=== PATIENT | female | born 1975 | race Caucasian/White ===

== ENCOUNTER 2020-09-15 22:16 | Emergency (ER) | payer OTHER, SELFPAY ==
[2020-09-15 22:17] VITALS: BP 126/73; PULSE 96; RESP 18; TEMP 36.3; O2SAT 100; BMI 23.8
--- NOTE | 2020-09-15 22:28 | ED.RN ---
[facility] CALLED FOR DRUG SCREEN
--- NOTE | 2020-09-15 22:41 | EX.ED.GENINJ ---
HPI History of Present Illness Chief Complaint: Laceration Informant: patient Onset/Context/Timing Onset: Today Mechanism/Context: Work Related Narrative Narrative: Patient is a 45-year-old female denies any significant past medical history presented with laceration to her left forearm. She is right-hand dominant. She was using a cook box filler to cut something when she accidentally cut her forearm. She saw white and knew that the laceration was deep so she came to the emergency room to be evaluated. Laceration occurred approximately 2 hours prior to my evaluation. Patient states she has a little bit of numbness in her hand but thinks it is because the bandage on her arm is very tight. She is not sure when her last tetanus was. She denies any significant pain. She has been a bit nauseous since the incident. No other complaints at this time. Tetanus Immunization: Unknown [facility] Home Medications NK 09/15/20 [History Last Taken Unknown] Allergy/AdvReac Type Severity Reaction Status Date / Time meperidine [From Demerol] Allergy Unknown Verified 09/15/20 22:18 Social History Smoking Status: Current every day smoker tobacco type: cigarettes ROS ROS ED Constitutional Constitutional ED: Denies chills, fever(s) or malaise Eyes Eyes: Denies blurry vision or loss of vision ENT ENT ED: Denies rhinorrhea or sore throat Cardiovascular Cardiovascular: Denies chest pain or dizziness Respiratory/Chest Respiratory/Chest: Denies cough or dyspnea Gastrointestinal Gastrointestinal: Reports nausea; Denies vomiting Genitourinary Genitourinary ED: Denies dysuria or hematuria Musculoskeletal Musculoskeletal: Denies arthralgias or myalgias Integumentary Reports other Details: Laceration to left forearm ; Denies rash Neurologic Neurologic: Denies focal weakness or headache(s) Psychiatric Psychiatric: Denies anxiety or behavioral changes EXAM Physical Exam Const Vital Signs: 09/15/20 22:17 Temperature 97.3 F L Temperature Source Temporal Pulse Rate 96 Respiratory Rate 18 Blood Pressure 126/73 H Blood Pressure Mean 90 Pulse Ox 100 Oxygen Delivery Method Room Air Positive well nourished and well developed General Appearance ED: well developed HEENT atraumatic Eyes PERRL and EOMs intact bilaterally Neck full ROM Chest Wall inspection of chest normal Resp normal respiratory effort Cardio regular rhythm Jugular Venous Distention: other Other Details: Brisk capillary refill Rate: regular rate Extremity full ROM General Extremety ED: Negative for deformity, edema or tenderness General Extremity: Negative for deformity or edema Neuro oriented x3, no focal motor deficits and no sensory deficits noted Sensorium / Orientation: alert Psych mental status grossly normal Skin Skin Narrative: 3 cm linear full-thickness laceration of the left forearm, proximal/medial and ventral aspect. PROC Procedures Lacerations Left arm: Length: 1.18 in Depth: Sub Q Shape: Linear Prep: Sterile Conditions and Chlorhexadine Laceration repair: Irrigated, Lidocaine with epi, Local and Skin sutures (4 simple interrupted ) Irrigated (ml): 500 Suture Information: Ethilon, Simple and 4-0 MDM MDM MDM Narrative Medical decision making narrative: Patient evaluated for laceration to her left forearm. Tetanus is updated. See procedure note. She is given Zofran for nausea. She is neurovascularly intact. Patient declines any analgesia in the ER. Workmen's Compensation paperwork is filled out. Discharge Plan Triage Chief Complaint: Laceration ED Provider: Mamta Becker Dx/Rx/DC Orders Clinical Impression: Laceration of forearm, left, Need for [id number] (Tdap) vaccine Instructions: ED Laceration: All Closures Prescriptions: No Action NK RF: 0 Primary Care Provider: Care Physician,No Primary Referrals: Corporate,Care [GROUP OF PHYSICIANS] - Care Physician,No Primary [Primary Care Provider] - Activity Restrictions/Additional Instructions: Sutures should be removed in 7-10 days. Please follow-up with either your PCP or Workmen's Compensation physician. You may also return the emergency room as needed. Alternate Tylenol and ibuprofen as needed for pain. Disposition Disposition: Home, self care Discharge Date/Time: 09/15/20 23:37
[2020-09-15] MEDS: Ondansetron ODT 4 MG Tablet PO (22:56)
[2020-09-15] MEDS: Diphth,Pertuss(Acell),Tet Vac 0.5 ML Vial IM (22:56)
[2020-09-15] MEDS: Lidocaine 1% /Epi 1:100 (20ml) 20 ML Vial INFILT (23:33)
== END 2020-09-15 23:37 | disposition home or self-care (01) ==
PROVIDERS: Emergency Provider Emergency Medicine
DX: S51.812A Laceration without foreign body of left forearm, initial encounter (principal); F17.210 Nicotine dependence, cigarettes, uncomplicated; W26.8XXA Contact with other sharp object(s), not elsewhere classified, initial encounter
CPT/HCPCS: 12001; 90471; 90715; 99282